=== PATIENT | female | born 1965 | race Caucasian/White ===

== ENCOUNTER 2017-08-06 16:35 | Emergency (ER) | payer BC ==
[~2017-08-06] VITALS: Ht 167.6 cm; Wt 79.0 kg
[~2017-08-06 16:35] MED LIST: ALBU8.5H4 IH; ARIP5TAB49 PO; BUDE10.22 INH; CLON-285 PO; CLON1TAB17 PO; DIPH-423 PO; EPIN0.3P3 IM; ESCI20TA PO; KETO15CR2 TOP; OMEP-50 PO; ONDA4TAB6 PO; OXYC-145 PO; POTA20LI PO; ZINO TP
[2017-08-06 16:44] VITALS: BP 115/85
[2017-08-06] MEDS ORDERED: ACET-2144 PO (17:40)
== END 2017-08-06 18:16 | disposition home or self-care (01) ==
LOC: ER 16:36
DX: S80.12XA Contusion of left lower leg, initial encounter (principal); Z88.0 Allergy status to penicillin; Z88.5 Allergy status to narcotic agent; Z91.040 Latex allergy status; Z88.8 Allergy status to other drugs, medicaments and biological substances; Z79.899 Other long term (current) drug therapy; W23.0XXA Caught, crushed, jammed, or pinched between moving objects, initial encounter; Y93.89 Activity, other specified; Y92.89 Other specified places as the place of occurrence of the external cause; Y99.8 Other external cause status
CPT/HCPCS: 73610; 99284; A6449

== ENCOUNTER 2018-10-08 18:24 | Emergency (ER) | payer SELFPAY ==
[~2018-10-08] VITALS: Ht 165.1 cm; Wt 78.2 kg
[~2018-10-08 18:24] MED LIST changes: -POTA20LI PO; +POTA20LI5 PO
[2018-10-08 19:12] LABS: BASOPHILS # (AUTO) 0.1 X10'3 (0-0.2); BASOPHILS % (AUTO) 1.1 % (0-1); EOSINOPHILS # (AUTO) 0.2 X10'3 (0-0.9); EOSINOPHILS % (AUTO) 3.4 % (0-6); HEMATOCRIT 35.4 % (35.0-45.0); HEMOGLOBIN 11.8 g/dl (12.0-16.0); LYMPHOCYTES # (AUTO) 2.7 X10'3 (1.1-4.8); LYMPHOCYTES % (AUTO) 39.2 % (21-51); MEAN CORPUSCULAR HGB CONC 33.4 g/dL (33.0-36.5); MEAN CORPUSCULAR VOLUME 89.8 FL (78-98); MEAN PLATELET VOLUME 7.7 FL (7.4-10.4); MONOCYTES # (AUTO) 0.5 X10'3 (0-0.9); MONOCYTES % (AUTO) 7.3 % (2-12); NEUTROPHILS # (AUTO) 3.4 X10'3 (1.8-7.7); PLATELET COUNT 271 X10'3 (140-440); RED BLOOD COUNT 3.95 X10'6 (4.20-5.60); RED CELL DISTRIBUTION WIDTH 16.1 % (11.5-14.5)
[2018-10-08 19:28] LABS: ALANINE AMINOTRANSFERASE 30 U/L (12-78); ALBUMIN 3.4 G/DL (3.4-5.0); ALBUMIN/GLOBULIN RATIO 1.1 (1.1-1.5); ALKALINE PHOSPHATASE 30 IU/L (46-116); ANION GAP 7 (8-16); ASPARTATE AMINO TRANSFERASE 24 U/L (10-37); BILIRUBIN,TOTAL 0.2 MG/DL (0.1-1.0); BLOOD UREA NITROGEN 7 MG/DL (7-18); BUN/CREATININE RATIO 5.1 (6.6-38.0); CALCIUM 8.4 MG/DL (8.5-10.1); CHLORIDE 97 MMOL/L (99-107); CREATININE 1.37 MG/DL (0.40-0.90); GLUCOSE 98 MG/DL (70-104); POTASSIUM 4.6 MMOL/L (3.5-5.1); SODIUM 132 MMOL/L (135-145); TOTAL PROTEIN 6.6 G/DL (6.4-8.2); eGFR 40 ML/MIN
[2018-10-08] MEDS ORDERED: proMETHazine 25mg tablet PO ONE (20:35)
[2018-10-08 21:00] LABS: TROPONIN I < 0.04 NG/ML (0.0-0.05)
[2018-10-08 21:45] LABS: CLARITY,URINE CLEAR (Clear); COLOR,URINE STRAW (Yellow); GLUCOSE, URINE NEGATIVE (Neg); KETONES,URINE NEGATIVE (Neg); LEUKOCYTE ESTERASE ,URINE NEGATIVE (Neg); NITRITES, URINE NEGATIVE (Neg); OCCULT BLOOD,URINE NEGATIVE (Neg); PH,URINE 6.5 (4.8-8.0); PROTEIN,URINE NEGATIVE (Neg); UROBILINOGEN,URINE 0.2 E.U/dL (0.2-1.0)
[2018-10-08 21:47] LABS: URINE AMPHETAMINE SCREEN POSITIVE (Neg); URINE BARBITUATE SCREEN NEGATIVE (Neg); URINE BENZODIAZEPINES SCREEN NEGATIVE (Neg); URINE CANNABINOID SCREEN POSITIVE (Neg); URINE COCAINE SCREEN NEGATIVE (Neg); URINE METHADONE SCREEN NEGATIVE (Neg); URINE OPIATE SCREEN NEGATIVE (Neg); URINE PHENCYCLIDINE SCREEN NEGATIVE (Neg)
[2018-10-08 21:50] LABS: UA COLLECTION TYPE CLN CATCH MIDSTREAM
[2018-10-08 22:10] VITALS: BP 108/65
== END 2018-10-08 22:11 | disposition home or self-care (01) ==
LOC: ER 18:26
DX: N28.9 Disorder of kidney and ureter, unspecified (principal); R20.2 Paresthesia of skin; R20.0 Anesthesia of skin; R53.1 Weakness; R42 Dizziness and giddiness; M25.512 Pain in left shoulder; M79.642 Pain in left hand; J45.909 Unspecified asthma, uncomplicated; G89.29 Other chronic pain; F41.9 Anxiety disorder, unspecified; F31.9 Bipolar disorder, unspecified; Z86.19 Personal history of other infectious and parasitic diseases; Z98.890 Other specified postprocedural states; Z98.84 Bariatric surgery status; Z88.0 Allergy status to penicillin; Z88.1 Allergy status to other antibiotic agents; Z88.6 Allergy status to analgesic agent; Z88.5 Allergy status to narcotic agent; Z91.040 Latex allergy status; Z79.899 Other long term (current) drug therapy
CPT/HCPCS: 36415; 71045; 80053; 80305; 81003; 84484; 85025; 99284; Q0169

== ENCOUNTER 2023-03-28 20:12 | Emergency (ER) | payer MEDICARE, OTHER ==
[~2023-03-28] VITALS: Ht 167.6 cm; Wt 85.0 kg
[~2023-03-28 20:12] MED LIST changes: -ALBU8.5H4 IH; +AMPH15TA2 PO; +AMPH30TA3 PO; +ARIP20TA4 PO; -ARIP5TAB49 PO; -BUDE10.22 INH; -CLON-285 PO; -CLON1TAB17 PO; +CLON1TAB96 PO; +CLON2TAB44 PO; -DIPH-423 PO; -EPIN0.3P3 IM; -ESCI20TA PO; +FLUO40CA10 PO; -KETO15CR2 TOP; +LAMO150T6 PO; -OMEP-50 PO; -ONDA4TAB6 PO; -OXYC-145 PO; +OXYC1TAB17 PO; +PANT-47 PO; -POTA20LI5 PO; -ZINO TP
[2023-03-28 20:24] VITALS: BP 105/64; PULSE 75; RESP 16; TEMP 98.2; O2SAT 100
== END 2023-03-28 22:23 | disposition home or self-care (01) ==
LOC: ER 20:13
DX: S00.83XA Contusion of other part of head, initial encounter (principal); Z88.0 Allergy status to penicillin; Z88.1 Allergy status to other antibiotic agents; Z91.040 Latex allergy status; Z91.013 Allergy to seafood; Z88.8 Allergy status to other drugs, medicaments and biological substances; Z79.899 Other long term (current) drug therapy; V89.2XXA Person injured in unspecified motor-vehicle accident, traffic, initial encounter; Y93.89 Activity, other specified; Y92.89 Other specified places as the place of occurrence of the external cause; Y99.8 Other external cause status
CPT/HCPCS: 70450; 99284

== ENCOUNTER 2023-03-30 13:54 | Emergency (ER) | payer MEDICARE ==
[~2023-03-30] VITALS: Ht 168.9 cm; Wt 82.5 kg
[2023-03-30 13:59] VITALS: BP 105/54; PULSE 83; RESP 16; TEMP 98.6; O2SAT 98
[2023-03-30] MEDS ORDERED: IBUP-1986 PO (14:10)
== END 2023-03-30 15:05 | disposition home or self-care (01) ==
LOC: ER 13:54
DX: F07.81 Postconcussional syndrome (principal); Z76.0 Encounter for issue of repeat prescription; J45.909 Unspecified asthma, uncomplicated; F31.9 Bipolar disorder, unspecified; Z88.0 Allergy status to penicillin; Z88.1 Allergy status to other antibiotic agents; Z91.040 Latex allergy status; Z91.013 Allergy to seafood; Z79.899 Other long term (current) drug therapy
CPT/HCPCS: 99281

== ENCOUNTER 2023-04-06 17:40 | Emergency (ER) | payer MEDICARE, OTHER ==
[~2023-04-06] VITALS: Ht 167.6 cm; Wt 89.6 kg
[~2023-04-06 17:40] MED LIST changes: +IBUP-1986 PO
[2023-04-06 17:41] VITALS: BP 125/44; PULSE 83; RESP 16; TEMP 98; O2SAT 100
== END 2023-04-06 19:18 | disposition home or self-care (01) ==
LOC: ER 17:41
DX: M54.50 Low back pain, unspecified (principal); J45.909 Unspecified asthma, uncomplicated; F31.9 Bipolar disorder, unspecified; Z88.0 Allergy status to penicillin; Z88.1 Allergy status to other antibiotic agents; Z91.040 Latex allergy status; Z91.013 Allergy to seafood; Z88.5 Allergy status to narcotic agent; Z79.899 Other long term (current) drug therapy
CPT/HCPCS: 72100; 99283